=== PATIENT | female | born 1960 | race Caucasian/White ===

== ENCOUNTER → 2023-11-04 06:22 | Day surgery (SDC) | payer OTHER, SELFPAY ==
[2023-11-04 07:38] LABS: Glucose - Point of Care 117 mg/dl (70-99)
== END ==
LOC: GI 06:22
PROVIDERS: ATTENDING PHYSICIAN Internal Medicine
DX: D12.3 Benign neoplasm of transverse colon (principal); K64.9 Unspecified hemorrhoids; Z83.710 Family history of adenomatous and serrated polyps
CPT/HCPCS: 45380; 88305; 82962